=== PATIENT | female | born 1965 | race Caucasian/White ===

== ENCOUNTER 2018-10-26 12:37 | Emergency (ER) | payer SELFPAY ==
[2018-10-26 13:11] VITALS: TEMP 97.2
--- NOTE | 2018-10-26 13:18 | ED.PDOC ---
History of Present Illness - General Chief Complaint: Skin/Abrasion/Tear Time Seen by Provider: 10/26/18 13:03 Source: patient - History of Present Illness Initial Comments: THIS PATIENT COMES TO THE ED FOR A WOUND THAT APPEARED ON THE UPPER BACK TWO DAYS AGO. SHE VOICES THAT SHE HAS BEEN SLEEPING WITH A HEATING PAD FOR SEVERAL DAYS BECAUSE OF CHRONIC PAIN TO THE NECK. SHE ALSO NOTED THAT SHE WOKE UP WITH MATTING ON THE RIGHT EYE AND REDNESS TO THE CONJUNCTIVA. SHE TAKES NO MEDICATIONS. Timing/Duration: other - TWO DAYS Severity: moderate Improving Factors: nothing Worsening Factors: nothing Associated Symptoms: denies symptoms Allergies/Adverse Reactions: Allergies NO KNOWN ALLERGY Allergy (Verified 11/19/15 11:39) Home Medications: Ambulatory Orders Erythromycin (Ophth) [Erythromycin] 5 mg RIGHT_EYE Q8HRS #1 gr 10/26/18 Lisinopril 10 mg PO DAILY #30 tab 10/26/18 Naphazoline W/ Pheniramine [Naphcon-A 0.025-0.3 %] 2 drop RIGHT_EYE Q8HRS #10 ml 10/26/18 Tramadol HCl 50 mg PO Q6HRS #20 tab 10/26/18 Review of Systems - Review of Systems Constitutional: States: malaise, other - NECK PAIN EENTM: States: other - RIGHT EYE ITCHES Respiratory: States: no symptoms reported Cardiology: States: no symptoms reported Gastrointestinal/Abdominal: States: no symptoms reported Genitourinary: States: no symptoms reported Musculoskeletal: States: other - NECK PAIN Skin: States: other - WOUND TO THE UPPER BACK Endocrine: States: no symptoms reported Hematologic/Lymphatic: States: no symptoms reported Past Medical History (General) - Patient Medical History Hx Stroke: No Hx Asthma: No Hx Congestive Heart Failure: No Hx Hypertension: No Hx Diabetes: No Hx MRSA: Yes - Abdomen 2010 MRSA Source:: Wound - Vaccination History Hx Tetanus, Diphtheria Vaccination: No Hx Influenza Vaccination: No Hx Pneumococcal Vaccination: No - Social History Hx Tobacco Use: Yes - Female History Patient : No Family Medical History - Family History Mother Family History: Unknown Living Status: Unknown Physical Exam - Physical Exam General Appearance: Alert, Other - MODERATE DISTRESS Eye Exam: right scleral icterus - INJECTED, NO DISCHARGE NOTED, bilateral normal Ears, Nose, Throat: hearing grossly normal, normal ENT inspection, normal pharynx Neck: limited range of motion, other - PAINFUL ON THE UPPER THORACIC AREA SHE HAD A 2X 2 CM ABRASION THAT HAS A CRUST TO THE WOUND BED. NO OBVIOUS INFECTION NOTED Respiratory: chest non-tender, lungs clear, normal breath sounds, no respiratory distress, no accessory muscle use Cardiovascular/Chest: normal peripheral pulses, regular rate, rhythm, no edema, no gallop Peripheral Pulses: radial,right: 2+, radial,left: 2+ Gastrointestinal/Abdominal: normal bowel sounds, non tender, soft, no organomegaly, no pulsatile mass Rectal Exam: deferred Extremity: normal range of motion Progress - Results/Orders Results/Orders: SLIGHT HYPERTENSION NOTED ON THE PATIENT. Departure - Departure Clinical Impression: Conjunctivitis Qualifiers: Conjunctivitis type: unspecified Laterality: right Qualified Code(s): H10.9 - Unspecified conjunctivitis Abrasion of upper back excluding scapular region Qualifiers: Encounter type: initial encounter Laterality: unspecified laterality Qualified Code(s): S20.419A - Abrasion of unspecified back wall of thorax, initial encounter Hypertension Qualifiers: Hypertension type: essential hypertension Qualified Code(s): I10 - Essential (primary) hypertension Time of Disposition: 13:26 Disposition: Discharge to Home or Self Care Condition: Good Departure Forms: ED Discharge - Pt. Copy, Patient Portal Self Enrollment Instructions: DI for Abrasion, Conjunctivitis ([place]), High Blood Pressure in Adults Prescriptions: Tramadol HCl 50 mg PO Q6HRS #20 tab Erythromycin (Ophth) [Erythromycin] 5 mg RIGHT_EYE Q8HRS #1 gr Naphazoline W/ Pheniramine [Naphcon-A 0.025-0.3 %] 2 drop RIGHT_EYE Q8HRS #10 ml Lisinopril 10 mg PO DAILY #30 tab Home Medications: Ambulatory Orders Erythromycin (Ophth) [Erythromycin] 5 mg RIGHT_EYE Q8HRS #1 gr 10/26/18 Lisinopril 10 mg PO DAILY #30 tab 10/26/18 Naphazoline W/ Pheniramine [Naphcon-A 0.025-0.3 %] 2 drop RIGHT_EYE Q8HRS #10 ml 10/26/18 Tramadol HCl 50 mg PO Q6HRS #20 tab 10/26/18
[2018-10-26] MEDS ORDERED: HYDROcodone 5MG/APAP 325MG 1 EA TAB PO ONE (13:22)
[2018-10-26 13:36] VITALS: BP 144/95; O2SAT 97
== END 2018-10-26 13:46 | disposition home or self-care (01) ==
LOC: ER 12:37
DX: S20.419A Abrasion of unspecified back wall of thorax, initial encounter (principal); H10.9 Unspecified conjunctivitis; I10 Essential (primary) hypertension; G89.29 Other chronic pain; M54.2 Cervicalgia; Z86.14 Personal history of Methicillin resistant Staphylococcus aureus infection; Z87.891 Personal history of nicotine dependence; X58.XXXA Exposure to other specified factors, initial encounter; Y92.9 Unspecified place or not applicable

== ENCOUNTER 2019-02-21 09:09 | Emergency (ER) | payer SELFPAY ==
[2019-02-21 09:22] VITALS: TEMP 97.5
--- NOTE | 2019-02-21 09:59 | ED.PDOC ---
History of Present Illness - General Chief Complaint: Bite: Animal/Insect/Human Stated Complaint: Bug bites x 3 weeks Time Seen by Provider: 02/21/19 09:28 Source: patient, RN notes reviewed, Vital Signs reviewed - History of Present Illness Initial Comments: c/o itchy rash with bugs being extracted from various sites x 3 weeks. She has 2 insects she brought with her. One looks like a flea. No fever or drainage. Was seen at another ED 10 days ago & took a single Permethrin treatment. No change. Timing/Duration: week Severity: mild Location: torso, extremities Improving Factors: nothing Worsening Factors: nothing Associated Symptoms: denies symptoms Allergies/Adverse Reactions: Allergies Penicillins Allergy (Verified 02/21/19 09:24) Home Medications: Ambulatory Orders Permethrin 5% [Elimite] 1 applic TOP ONCE 1 Days #30 gm 02/21/19 Review of Systems - Review of Systems Constitutional: States: no symptoms reported EENTM: States: no symptoms reported Musculoskeletal: States: no symptoms reported Skin: States: see HPI Neurological: States: no symptoms reported Past Medical History (General) - Patient Medical History Hx Stroke: No Hx Asthma: No Hx of COPD: No Hx Congestive Heart Failure: No Hx Hypertension: No Hx Diabetes: No Hx MRSA: Yes - Abdomen 2010 MRSA Source:: Wound Surgical History: other - Vaccination History Hx Tetanus, Diphtheria Vaccination: No Hx Influenza Vaccination: No Hx Pneumococcal Vaccination: No - Social History Hx Tobacco Use: Yes Hx Alcohol Use: Yes Hx Substance Use: No Hx Substance Use Treatment: No Hx Depression: Yes - Female History Patient is a Female of Child Bearing Age (10 -59 yrs old): No Patient : No Family Medical History - Family History Mother Family History: Unknown Living Status: Still Living Physical Exam - Physical Exam General Appearance: Alert, Comfortable, No apparent distress Neck: supple Respiratory: no respiratory distress Extremity: normal range of motion, non-tender Neurologic: alert, normal mood/affect, oriented x 3 Skin Exam: warm/dry, normal color, other - scattered areas with erosions & rings of erythema. No purulence or cellulitis. I see no insects. Skin Problem Location: generalized Skin Character: lesion Progress - Progress Progress: 02/21/19 14:53 Repeat Permethrin x 1 & refer to PC. Departure - Departure Clinical Impression: Insect bites Qualifiers: Encounter type: initial encounter Site of insect bite: abdominal wall Qualified Code(s): S30.861A - Insect bite (nonvenomous) of abdominal wall, initial encounter Time of Disposition: 09:56 Disposition: Discharge to Home or Self Care Condition: Good Departure Forms: ED Discharge - Pt. Copy, Patient Portal Self Enrollment Instructions: DI for Insect Bites and Stings Referrals: UNKNOWN,PHYSICIAN [Primary Care Provider] - 1 Week Nazia Gallo [employer] [Nurse Practitioner] - 1-2 Weeks Prescriptions: Permethrin 5% [Elimite] 1 applic TOP ONCE 1 Days #30 gm Home Medications: Ambulatory Orders Permethrin 5% [Elimite] 1 applic TOP ONCE 1 Days #30 gm 02/21/19
[2019-02-21 10:35] VITALS: BP 142/92; O2SAT 98
== END 2019-02-21 10:05 | disposition home or self-care (01) ==
LOC: ER 09:09
DX: S30.861A Insect bite (nonvenomous) of abdominal wall, initial encounter (principal); F32.9 Major depressive disorder, single episode, unspecified; Z86.14 Personal history of Methicillin resistant Staphylococcus aureus infection; Z87.891 Personal history of nicotine dependence; Z88.0 Allergy status to penicillin; Y92.9 Unspecified place or not applicable

== ENCOUNTER 2019-04-01 | Emergency (ER) | payer SELFPAY ==
--- NOTE | 2019-04-01 11:34 | ED.PDOC ---
History of Present Illness - General Chief Complaint: Skin/Abrasion/Tear Stated Complaint: Insect bites bilateral arms, R ankle and R breast Time Seen by Provider: 04/01/19 11:32 Source: patient Exam Limitations: no limitations - History of Present Illness Initial Comments: PT REPORTS 2 MONTH HISTORY OF RASH LOCATED ON ARMS, BREAST, AND THIGHS. PT REPORTS USING MULTIPLE HOME REMEDIES INCLUDING BLEACH TO CLEAN WOUNDS. PT ALSO REPORTS TAKING ANTIBIOTICS GIVEN TO HER BY A FRIEND BUT IS UNSURE WHAT ANTIBIOTIC SHE TOOK. PT STATES THAT SHE FEELS LIKE A LITTLE BUG IS IN EACH SORE AND WHEN SHE PICKS THE SCAB IT HAS LEGS ATTACHED. Location: torso, extremities Improving Factors: nothing Worsening Factors: nothing Associated Symptoms: itching Allergies/Adverse Reactions: Allergies Penicillins Allergy (Verified 02/21/19 09:24) Home Medications: Ambulatory Orders Sulfa/Trimeth 800/160 (Ds) Tab [Bactrim DS] 1 tablet PO BID 10 Days #20 tab 04/01/19 Review of Systems - Review of Systems Constitutional: Denies: chills, fever EENTM: Denies: nose congestion, throat pain Musculoskeletal: Denies: joint swelling Skin: States: lesions, rash Neurological: Denies: numbness, paresthesia Past Medical History (General) - Patient Medical History Hx Stroke: No Hx Asthma: No Hx of COPD: No Hx Congestive Heart Failure: No Hx Hypertension: Yes Hx Diabetes: No Hx Cancer: No Hx MRSA: Yes - Abdomen 2010 MRSA Source:: Wound Surgical History: other - Vaccination History Hx Tetanus, Diphtheria Vaccination: No Hx Influenza Vaccination: No Hx Pneumococcal Vaccination: No Immunizations Up to Date: No - Social History Hx Tobacco Use: Yes Hx Alcohol Use: No Hx Substance Use: No Hx Substance Use Treatment: No Hx Depression: No - Female History Patient is a Female of Child Bearing Age (10 -59 yrs old): Yes Patient : No Family Medical History - Family History Mother Family History: Unknown Living Status: Still Living Hx Family Hypertension: Yes Hx Cardiac Disease: Yes Hx Family Diabetes: Yes Physical Exam - Physical Exam General Appearance: Anxious, Well Groomed, Well Hydrated, Well Nourished Eyes, Ears, Nose, Throat Exam: normal ENT inspection Respiratory: no respiratory distress Neurologic: alert, normal mood/affect, oriented x 3 Skin Problem Location: upper extremities, torso, lower extremities Skin Character: erythema - SHALLOW ULCERATED LESIONS LOCATED ON EXTENSOR SURFACES OF BOTH FOREARMS, UPPER RIGHT BREAST AND UPPER THIGHS. PT HAS NO LESIONS IN AREAS THAT ARE NOT ABLE TO BE REACHED BY HANDS. NO LESIONS ON BACK. Progress - Progress Progress: 04/01/19 11:39 PT INSTRUCTED TO REFRAIN FROM PICKING AT SKIN. PT REFERRED TO [facility] FOR FOLLOW UP. Departure - Departure Clinical Impression: Excoriation (skin-picking) disorder, Cellulitis Time of Disposition: 11:40 Disposition: Discharge to Home or Self Care Condition: Good Departure Forms: ED Discharge - Pt. Copy, Patient Portal Self Enrollment Instructions: DI for Wound Infection Referrals: [facility] [Provider Group] - 1 Week Prescriptions: Sulfa/Trimeth 800/160 (Ds) Tab [Bactrim DS] 1 tablet PO BID 10 Days #20 tab Home Medications: Ambulatory Orders Sulfa/Trimeth 800/160 (Ds) Tab [Bactrim DS] 1 tablet PO BID 10 Days #20 tab 04/01/19
== END 2019-04-01 11:45 | disposition home or self-care (01) ==